=== PATIENT | female | born 1975 | race Caucasian/White ===

== ENCOUNTER 2016-09-18 20:02 | Emergency (ER) | payer SELFPAY ==
[~2016-09-18] VITALS: Ht 157.5 cm; Wt 78.5 kg
[~2016-09-18 20:02] MED LIST: PREN1TAB49
[2016-09-18 20:16] VITALS: Ht 157.5 cm; Wt 78.5 kg
[2016-09-18 21:39] LABS: URINE BLOOD (Dip) POC 3+ (NEGATIVE)
[2016-09-18] MEDS ORDERED: CIPR500T4 PO (21:54)
--- NOTE | 2016-09-18 21:54 | ERD ---
ER Documentation Chief Complaint Date/Time DATE: 09/18/16 TIME: 21:53 Chief Complaint Dysuria and Headache HPI This is a 41-year-old female presents to the emergency room for evaluation of painful urination. The patient states that her symptoms have been present for approximately 2 days duration. She denies any flank pain or fever associated with this and came to the ER for evaluation. ROS All systems reviewed and are negative except as per history of present illness. Medications Home Meds Reported Medications Vits W-Ca,Fe,Fa(<1MG) () 1 Tab Tablet, DAILY 08/28/11 Allergies Allergies: Coded Allergies: No Known Drug Allergies (Verified Allergy, 08/28/11) PMhx/Soc Medical and Surgical Hx: pt denies Medical Hx, pt denies Surgical Hx Hx Alcohol Use: No Hx Substance Use: No Hx Tobacco Use: No Smoking Status: Unknown if ever smoked Physical Exam Vitals Vital Signs Date Time Temp Pulse Resp B/P Pulse Ox O2 Delivery O2 Flow Rate FiO2 09/18/16 20:16 98.7 89 18 144/72 99 Physical Exam Const: No acute distress Head: Atraumatic Eyes: Normal Conjunctiva ENT: Normal External Ears, Nose and Mouth. Neck: Full range of motion..~ No meningismus. Resp: Clear to auscultation bilaterally Cardio: Regular rate and rhythm, no murmurs Abd: Soft, non tender, non distended. Normal bowel sounds Skin: No petechiae or rashes Back: No midline or flank tenderness Ext: No cyanosis, or edema Neur: Awake and alert Psych: Normal Mood and Affect Results 24 hrs Laboratory Tests Test 09/18/16 21:40 Bedside Urine Blood 3+ Bedside Urine Glucose (UA) Negative Bedside Urine Ketones (LAB) Negative Bedside Urine Leukocyte Esterase (L 1+ Bedside Urine Nitrite (LAB) Negative Bedside Urine Protein (LAB) 2+ Bedside Urine pH (LAB) 6.0 Current Medications Medications (Trade) Dose Ordered Sig/[place] Route PRN Reason Start Time Stop Time Status Last Admin Dose Admin Ciprofloxacin (Cipro) 500 mg ONCE ONCE PO 09/18/16 22:00 09/18/16 22:01 09/18/16 21:43 Procedures/MDM This 41-year-old female presents to the emergency room for evaluation of painful urination. This patient also has urinary frequency. This patient was found to have nitrite positive urinary tract infection on her urine dip. She was given ciprofloxacin p.o. in the emergency room and will be discharged home with a prescription for ciprofloxacin at this time. No signs of fever or systemic infection. Departure Diagnosis: Primary Impression: Acute cystitis Condition: Stable KERI MERLOS DO Sep 18, 2016 21:54
[2016-09-18] MEDS ORDERED: CIPROFLOXACIN 500 MG TAB PO ONE (22:00)
== END 2016-09-18 22:00 | disposition home or self-care (01) ==
LOC: E/R 20:02
DX: N30.00 Acute cystitis without hematuria (principal)
CPT/HCPCS: 81003; 99283